=== PATIENT | male | born 1985 | race Caucasian/White ===

== ENCOUNTER 2019-09-18 12:15 | Emergency (ER) | payer SELFPAY ==
[2019-09-18 12:46] VITALS: BMI 28.7
[2019-09-18 12:48] VITALS: BP 121/77; PULSE 61; RESP 14; TEMP 36.8; O2SAT 97
--- NOTE | 2019-09-18 14:16 | XRR_ITS ---
PROCEDURE INFORMATION: Exam: XR Left Hand Exam date and time: 09/18/2019 2:17 PM Age: 34 years old Clinical indication: Injury or trauma; Injury history: Cut 1st digit; Initial encounter; Laceration; Left; Index finger TECHNIQUE: Imaging protocol: XR Left hand. Views: 3 or more views. COMPARISON: No relevant prior studies available. FINDINGS: Bones/joints: No acute fracture or dislocation. Soft tissues: There is soft tissue edema. No foreign body. Other findings: There is a bandage. XR/XR hand LT min 3V* [id number] IMPRESSION: 1. There is soft tissue edema. 2. No acute bony abnormality.
[2019-09-18 16:29] VITALS: RESP 16
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
== END 2019-09-18 16:41 | disposition home or self-care (01) ==
PROVIDERS: Emergency Provider Family Medicine
DX: S61.412A Laceration without foreign body of left hand, initial encounter (principal); W25.XXXA Contact with sharp glass, initial encounter
CPT/HCPCS: 12001; 12345; 73130; 99282; 99283